=== PATIENT | female | born 1985 | race Caucasian/White ===

== ENCOUNTER 2023-04-28 21:34 | Outpatient (REF) | payer BC, OTHER, SELFPAY ==
[2023-05-01 16:10] LABS: Age Gdln ACOG Testing Note (.); HPV Aptima Negative (Negative); IGP, Aptima HPV, rfx 16/18,45 Note (.)
== END 2023-04-28 21:35 | disposition home or self-care (01) ==
LOC: LAB 21:34
PROVIDERS: Visit Provider Obstetrics & Gynecology
DX: Z01.419 Encounter for gynecological examination (general) (routine) without abnormal findings (principal)
CPT/HCPCS: 87624; G0145

== ENCOUNTER 2024-05-03 21:54 | Outpatient (REF) | payer BC, OTHER, SELFPAY ==
--- OUTSIDE RECORDS SUMMARY | 2024-05-03 21:58 | XMS_ITS | CCD ---
Author Organization [facility] Care Team Providers Care 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 Name Role Phone BENITEZ, DR GÓMEZ Admitting Unavailable BENITEZ, DR GÓMEZ Attending Unavailable BENITEZ, DR GÓMEZ Consulting Unavailable BENITEZ, DR GÓMEZ Admitting Unavailable BENITEZ, DR GÓMEZ Attending Unavailable NADERER, DR DAMON Granado Primary Care Unavailable BENITEZ, DR GÓMEZ Consulting Unavailable BENITEZ, DR GÓMEZ Consulting Unavailable BENITEZ, DR GÓMEZ Admitting Unavailable BENITEZ, DR GÓMEZ Attending Unavailable NADEREDavid, DR DAMON Granado Primary Care Unavailable NAVYA BARRON Consulting Unavailable BENITEZ, DR GÓMEZ Admitting Unavailable BENITEZ, DR GÓMEZ Attending Unavailable BENITEZ, DR GÓMEZ Admitting Unavailable BENITEZ, DR GMÓEZ Attending Unavailable DECATUR, DR CARTER Garg Consulting Unavailable BENITEZ, DR GÓMEZ Consulting Unavailable Anna Willson Unavailable Damon Merritt MD Primary Care Provider RICO DAMON Attending Unavailable OTTO RANDHAWA Attending Unavailable OTTO RANDHAWA Attending Unavailable OTTO RANDHAWA Attending Unavailable ELENA REDD Attending Unavailable ELENA REDD Attending Unavailable KASSY VÁSQUEZ Attending Unavailab DAMON Hernández Attending Unavailable ELENA REDD Attending Unavailable Allergies Allergy Classification Reported Allergen(s) Allergy Type Date of Onset Reaction(s) Facility (1 source) Azithromycin Drug Allergy 04-11-2014 [facility] (1 source) Latex Drug allergy (disorder) 07-21-2015 [facility] Medications Current Medications Medication Drug Class(es) Dates Sig (Normalized) Sig (Original) acetaminophen 325 mg / oxyCODONE hydrochloride 5 mg oral tablet (13 sources) Opioid Agonist Start: 05-25-2023 oxyCODONE-acetam inophen (Percocet) 5-325 MG tablet Take 1 tablet by mouth in the morning and 1 tablet at noon and 1 tablet in the evening and 1 tablet before bedtime. 05/25/2023 Active 24 hr dexmethylphenidate hydrochloride 30 mg extended release oral capsule (11 sources) Central Nervous System Stimulant Start: 01-27-2024 End: 03-01-2024 take 1 capsule by mouth once daily Start: 11-06-2023 End: 01-27-2024 take 1 capsule by mouth once daily dexmethylphenidate XR (Focalin XR) 20 MG 24 hr capsule Indications: ADD (attention deficit disorder) without hyperactivity Take 1 capsule (20 mg) by mouth Daily Do not crush, chew, or split. 30 capsule 12/04/2023 01/27/2024 Discontinued lisdexamfetamine dimesylate 50 mg oral capsule (9 sources) Central Nervous System Stimulant Start: 04-19-2024 End: 05-19-2024 take 1 capsule by mouth in the morning lisdexamfetamine (Vyvanse) 50 MG capsule Indications: ADD (attention deficit disorder) without hyperactivity Take 1 capsule (50 mg) by mouth in the morning. 30 capsule 04/19/2024 05/19/2024 Active Start: 04-05-2024 End: 05-05-2024 take 1 capsule by mouth in the morning lisdexamfetamine (Vyvanse) 40 MG capsule Indications: ADD (attention deficit disorder) without hyperactivity Take 1 capsule (40 mg) by mouth in the morning. 30 capsule 04/05/2024 04/15/2024 Discontinued (Reorder) Start: 03-01-2024 End: 04-05-2024 take 1 capsule by mouth in the morning lisdexamfetamine (Vyvanse) 20 MG capsule Indications: ADD (attention deficit disorder) without hyperactivity Take 1 capsule (20 mg) by mouth in the morning. 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 Take 1 tablet (100 mg) by mouth Daily 30 tablet 04/19/2024 04/19/2025 Active tiZANidine 4 mg oral tablet (13 sources) Central alpha-2 Adrenergic Agonist tiZANidine (Zanaflex) 4 MG tablet Take 4 mg by mouth Active Completed/Discontinued Medications Medication Drug Class(es) Dates Sig (Normalized) Sig (Original) predniSONE 50 mg oral tablet (2 sources) Start: 02-09-2024 End: 02-15-2024 take 1 tablet by mouth once daily predniSONE (Deltasone) 50 MG tablet Indications: Chronic elbow pain, right Take 1 tablet (50 mg) by mouth Daily for 6 days 6 tablet 02/09/2024 02/15/2024 Problems Active Problems Problem Classification Problem Date Documented Date Episodic/Chronic Anxiety disorders (20 sources) Anxiety; Translations: [Anxiety disorder, unspecified] Onset: 06-05-2023 06-05-2023 Chronic Contraceptive and procreative management (1 source) Tubal ligation status; Translations: [TUBAL LIGATION STATUS] Onset: 03-07-2021 Episodic Developmental disorders (13 sources) Sensory disorder; 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] Onset: 03-30-2023 03-30-2023 Chronic Disorders usually diagnosed in infancy, childhood, or adolescence (20 sources) Attention deficit hyperactivity disorder, predominantly inattentive type; Translations: [Other specified behavioral and emotional disorders with onset usually occurring in childhood and adolescence] Onset: 11-06-2023 11-06-2023 Chronic Immunizations and screening for infectious disease (1 source) Encounter for screening for human papillomavirus (HPV); Translations: [ENC SCREENING HUMAN PAPILLOMAVIRUS] Onset: 01-02-2021 Episodic Menstrual disorders (6 sources) Dysmenorrhea, unspecified; Translations: [Excessive and frequent menstruation with regular cycle] Onset: 03-02-2021 Chronic Other ear and sense organ disorders (13 sources) Hearing change; Translations: [Unspecified hearing loss, bilateral] Onset: 06-05-2023 06-05-2023 Chronic Other hereditary and degenerative nervous system conditions (5 sources) Restless legs; Translations: [Restless legs syndrome] Onset: 04-19-2024 04-15-2024 Chronic Other nervous system disorders (15 sources) Attention and concentration deficit; Translations: [Attention or concentration deficit] Onset: 03-21-2023 03-21-2023 Chronic Other non-traumatic joint disorders (11 sources) Chronic pain of right upper limb; Translations: [Pain in right elbow] Onset: 02-09-2024 02-09-2024 Episodic Other nutritional; endocrine; and metabolic disorders (1 source) Morbid (severe) obesity due to excess calories; Translations: [MORBID SEVERE OBES D/T EXCESS BEATRICE] Onset: 03-07-2021 Chronic Other nutritional; endocrine; and metabolic disorders (1 source) Body mass index (BMI) 39.0-39.9, adult; Translations: [BODY MASS INDEX BMI 39.0-39.9 ADULT] Onset: 03-07-2021 Chronic Other nutritional; endocrine; and metabolic disorders (11 sources) Severe obesity; Translations: [Class 3 severe obesity due to excess calories without serious comorbidity with body mass index (BMI) of 40.0 to 44.9 in adult] Onset: 02-09-2024 02-09-2024 Chronic Other screening for suspected conditions (not mental disorders or infectious disease) (4 sources) Encounter for screening for malignant neoplasm of cervix; Translations: [ENC SCREENING MALIG NEOPLASM CERV] Onset: 12-20-2020 Episodic Residual codes; unclassified (1 source) Acquired absence of other specified parts of digestive tract; Translations: [ACQ ABSENCE OTH PART DIGESTV TRACT] Onset: 03-07-2021 Episodic Substance-related disorders (1 source) Nicotine dependence, cigarettes, uncomplicated; Translations: [NICOTINE DEPEND CIGARETTES UNCOMP] Onset: 03-07-2021 Chronic Unclassified (1 source) CONTACT W/AND (SUSP) EXPOS COVID-19; Translations: [CONTACT W/AND (SUSP) EXPOS COVID-19] Onset: 03-05-2021 Unclassified (2 sources) Post-COVID chronic concentration deficit 01-27-2024 Unclassified (2 sources) Chronic pain of right upper limb 02-09-2024 Past or Other Problems Problem Classification Problem Date Documented Da te Episodic/Chronic Blindness and vision defects (13 sources) Eye / vision finding; Translations: [Unspecified visual disturbance] Onset: 06-05-2023 06-05-2023 Episodic Intracranial injury (17 sources) Traumatic brain injury; Translations: [TBI (traumatic brain injury)] Onset: 06-05-2023 06-05-2023 Episodic Other injuries and conditions due to external causes (1 source) Unspecified injury of right wrist, hand and finger(s), initial encounter Onset: 04-10-2021 Resolved: 04-10-2021 Episodic Spondylosis; intervertebral disc disorders; other back problems (13 sources) Thoracic radiculitis; Translations: [Radiculopathy, thoracic region] Onset: 10-02-2012 09-18-2023 Episodic Sprains and strains (1 source) Sprain of unspecified part of right wrist and hand, initial encounter Onset: 04-10-2021 Resolved: 04-10-2021 Episodic Results Test Name Value Interpretation Reference Range Facility XR hand RT min 3V*on 022 XR hand RT min 3V* [facility] [place] [address] [place] [address] XRay Report Signed Patient: Gretel Card MR#: [id number] : 1985 Acct:[id number] Age/Sex: 35 / F ADM Date: 04/10/21 Loc: [facility] Room: Type: [facility] Attending Dr: Anna Willson PA-C Ordering Provider: Anna Willson Date of Service: 04/10/21 XR/XR hand RT min 3V*: Injury of right hand, initial encounter Copies to: Anna Willson XR hand RT min 3V* 04/10/2021 4:33 PM SIGNS AND SYMPTOMS: Fall onto right hand with pain and bruising along the palmar aspect canal and along the first and second metacarpals PROTOCOL: Frontal, lateral, and oblique radiographs of the right hand COMPARISON: None FINDINGS: The bones are in anatomic alignment. There is no evidence of fracture or dislocation. No significant soft tissue swelling. The joint spaces are preserved. XR/XR hand RT min 3V* IMPRESSION: No acute bony injury. Impression dictated by: Celio Gomez M.D.04/10/2021 5:00 PM Dictation Location: [place] [address] Transcribed By: [facility] 04/10/21 170 Dictated By: Celio Gomez II, MD 04/10/21 165 Signed By: 04/10/21 1700 Normal [facility] XR hand RT min 3V* [facility] [employer] Other XR hand RT min 3V* [facility] [employer] Other XR hand RT min 3V* [address] [place] [address] [employer] Other XR hand RT min 3V* [place] [address] [employer] Other XR hand RT min 3V* XRay Report [employer] Other XR hand RT min 3V* Signed [employer] Other XR hand RT min 3V* Patient: Gretel Card MR#: [id number] [employer] Other XR hand RT min 3V* 8929 [employer] Other XR hand RT min 3V* : 1985 Acct:[id number] [employer] Other XR hand RT min 3V* Age/Sex: 35 / F ADM Date: 04/10/21 [employer] Other XR hand RT min 3V* Loc: [facility] Room: Type: [facility] [employer] Other XR hand RT min 3V* Attending Dr: Anna Willson PA-C [employer] Other XR hand RT min 3V* Ordering Provider: Anna Willson [employer] Other XR hand RT min 3V* Date of Service: 04/10/21 [employer] Other XR hand RT min 3V* XR/XR hand RT min 3V*: Injury of right hand, initial encounter [employer] Other XR hand RT min 3V* Copies to: Anna Willson [employer] Other XR hand RT min 3V* XR hand RT min 3V* 04/10/2021 4:33 PM [employer] Other XR hand RT min 3V* SIGNS AND SYMPTOMS: Fall onto right hand with pain and bruising along the palmar aspect canal and [employer] Other XR hand RT min 3V* along the first and second metacarpals [employer] Other XR hand RT min 3V* PROTOCOL: Frontal, lateral, and oblique radiographs of the right hand [employer] Other XR hand RT min 3V* COMPARISON: None [employer] Other XR hand RT min 3V* FINDINGS: [employer] Other XR hand RT min 3V* The bones are in anatomic alignment. There is no evidence of fracture or dislocation. No [employer] Other XR hand RT min 3V* significant soft tissue swelling. The joint spaces are preserved. [employer] Other XR hand RT min 3V* XR/XR hand RT min 3V* [employer] Other XR hand RT min 3V* IMPRESSION: [employer] Other XR hand RT min 3V* No acute bony injury. [employer] Other XR hand RT min 3V* Impression dictated by: Celio Gomez M.D.04/10/2021 5:00 PM [employer] Other XR hand RT min 3V* Dictation Location: [place] [address] [employer] Other XR hand RT min 3V* Transcribed By: PWS 04/10/21 1700 [facility] [employer] Other XR hand RT min 3V* Dictated By: Celio Gomez II, MD 04/10/21 1658 [facility] [employer] Other XR hand RT min 3V* Signed By: [employer] Other XR hand RT min 3V* 04/10/21 1700 [facility] [employer] Other CBC AUTO DIFFon 03-02-2021 BASO # 0.1 103/ul Normal 0.0-0.1 [facility] Comment on above: Performed By: #### C BC #### [facility] [address] [place] [address] Dr. Marina Zavala Basophils/100 WBC (Bld) 0.8 % Normal 0.2-2.0 [facility] Comment on above: Performed By: #### C BC #### [facility] [address] [place] [address] Dr. Marina Zavala EO # 0.4 103/ul Normal 0.0-0.7 [facility] Comment on above: Performed By: #### C BC #### [facility] [address] [place] [address] Dr. Marina Zavala Eosinophils/100 WBC (Bld) 4.5 % Normal 0.9-7.0 [facility] Comment on above: Performed By: #### C BC #### [facility] [address] [place] [address] Dr. Marina Zavala Erythrocyte distribution width (RBC) [Ratio] 12.7 % Normal 11.0-15.0 [facility] Comment on above: Performed By: #### C BC #### [facility] [address] [place] [address] Dr. Marina Zavala Hematocrit (Bld) [Volume fraction] 41.6 % Normal 36.0-48.0 [facility] Comment on above: Performed By: #### C BC #### [facility] [address] [place] [address] Dr. Marina Zavala Hemoglobin (Bld) [Mass/Vol] 13.4 g/dL Normal 12.0-16.0 [facility] Comment on above: Performed By: #### C BC #### [facility] [address] [place] [address] Dr. Marina Zavala IG # 0.02 10e3/ul Normal 0.00-0.03 [facility] Comment on above: Performed By: #### C BC #### [facility] [address] [place] [address] Dr. Marina Zavala IG % 0.3 % Normal 0.0-0.5 [facility] Comment on above: Performed By: #### C BC #### [facility] [address] [place] [address] Dr. Marina Zavala LYMPH # 2.2 103/ul Normal 1.2-3.8 [facility] Comment on above: Performed By: #### C BC #### [facility] [address] [place] [address] Dr. Marina Zavala Lymphocytes/100 WBC (Bld) 27.9 % Normal 20.5-60.0 [facility] Comment on above: Performed By: #### C BC #### [facility] [address] [place] [address] Dr. Marina Zavala MANUAL DIFF REQ NO Normal [facility] Comment on above: Performed By: #### C BC #### [facility] [address] [place] [address] Dr. Marina Zavala MCH (RBC) [Entitic mass] 28.5 pg Normal 26.7-34.0 [facility] Comment on above: Performed By: #### C BC #### [facility] [address] [place] [address] Dr. Marina Zavala MCHC (RBC) [Mass/Vol] 32.2 g/dL Normal 29.9-35.2 [facility] Comment on above: Performed By: #### C BC #### [facility] [address] [place] [address] Dr. Marina Zavala MCV (RBC) [Entitic vol] 88.5 fL Normal 81.0-99.0 [facility] Comment on above: Performed By: #### C BC #### [facility] [address] [place] [address] Dr. Marina Zavala MONO # 0.8 103/ul Normal 0.3-0.8 [facility] Comment on above: Performed By: #### C BC #### [facility] [address] [place] [address] Dr. Marina Zavala Monocytes/100 WBC (Bld) 9.7 % Normal 1.7-12.0 [facility] Comment on above: Performed By: #### C BC #### [facility] [address] [place] [address] Dr. Marina Zavala NEUT # 4.5 103/ul Normal 1.4-6.5 [facility] Comment on above: Performed By: #### C BC #### [facility] [address] [place] [address] Dr. Marina Zavala Neutrophils/100 WBC (Bld) 56.8 % Normal 43.0-75.0 [facility] Comment on above: Performed By: #### C BC #### [facility] [address] [place] [address] Dr. Marina Zavala Platelet mean volume (Bld) [Entitic vol] 10.0 fL Normal 9.5-13.5 [facility] Comment on above: Performed By: #### C BC #### [facility] [address] [place] [address] Dr. Marina Zavala PLT 267 103/ul Normal 150-450 [facility] Comment on above: Performed By: #### C BC #### [facility] [address] [place] [address] Dr. Marina Zavala RBC 4.70 106/ul Normal 4.20-5.40 [facility] Comment on above: Performed By: #### C BC #### [facility] [address] [place] [address] Dr. Marina Zavala WBC 7.9 103/ul Normal 4.0-11.0 [facility] Comment on above: Performed By: #### C BC #### [facility] [address] [place] [address] [address] Marina Zavala PREG QUANT HCGon 03-02-2021 HCG QUANT <1 Normal [facility] Comment on above: Performed By: #### P REGQNT #### [facility] [address] [place] [address] [address] Marina Zavala HCG RANGE SEE BELOW Normal [facility] Comment on above: Result Comment: 5-50 0-1 WEEK 40-300 1-2 WEEKS 100-1,000 2-3 WEEKS 500-6,000 3-4 WEEKS 5,000-200,000 1-2 MONTHS 10,000-100,000 2-3 MONTHS 3,000-50,000 2ND TRIMESTER 1,000-50,000 3RD TRIMESTER Performed By: #### P REGQNT #### [facility] [address] [address] [address] Marina Zavala Covid-19 PCR (CVDTBH)on SARS-CoV-2 (COVID-19) RNA RONI+probe Ql (Unsp spec) Not detected Normal NOT DETECTED [facility] Comment on above: Result Comment: This test is not yet approved or cleared by the [place] FDA. When there are no FDA-approved or cleared tests available, and other criteria are met, FDA can make tests available under an emergency access mechanism called an Emergency Use Authorization (EUA). The EUA for this test is supported by the [place] [employer] of Health and Human Service's (HHS's) declaration that circumstances exist to justify the emergency use of in vitro diagnostics for the detection and/or diagnosis of the virus that causes COVID-19. This EUA will remain in effect (meaning this test can be used) for the duration of the COVID-19 declaration justifying emergency of IVDs, unless it is terminated or revoked by FDA (after which the test may no longer be used). When diagnostic testing is negative, the possibility of a false negative should be considered in the context of a patient's recent exposures and the presence of clinical signs and symptoms consistent with SARS-CoV-2. Performed By: #### C VDTBH #### [facility] [address] [place] [address] Dr. Marina Zavala CBC AUTO DIFFon 01-15-2021 BASO # 0.0 103/ul Normal 0.0-0.1 [facility] Comment on above: Performed By: #### C BC #### [facility] [address] [place] [address] Dr. Marina Zavala Basophils/100 WBC (Bld) 0.5 % Normal 0.2-2.0 [facility] Comment on above: Performed By: #### C BC #### [facility] [address] [place] [address] Dr. Marina Zavala EO # 0.1 103/ul Normal 0.0-0.7 [facility] Comment on above: Performed By: #### C BC #### [facility] [address] [place] [address] Dr. Marina Zavala Eosinophils/100 WBC (Bld) 1.5 % Normal 0.9-7.0 [facility] Comment on above: Performed By: #### C BC #### [facility] [address] [place] [address] Dr. Marina Zavala Erythrocyte distribution width (RBC) [Ratio] 12.7 % Normal 11.0-15.0 [facility] Comment on above: Performed By: #### C BC #### [facility] [address] [place] [address] Dr. Marina Zavala Hematocrit (Bld) [Volume fraction] 40.5 % Normal 36.0-48.0 [facility] Comment on above: Performed By: #### C BC #### [facility] [address] [place] [address] Dr. Marina Zavala Hemoglobin (Bld) [Mass/Vol] 13.2 g/dL Normal 12.0-16.0 [facility] Comment on above: Performed By: #### C BC #### [facility] [address] [place] [address] Dr. Marina Zavala IG # 0.02 10e3/ul Normal 0.00-0.03 [facility] Comment on above: Performed By: #### C BC #### [facility] [address] [place] [address] Dr. Marina Zavala IG % 0.2 % Normal 0.0-0.5 [facility] Comment on above: Performed By: #### C BC #### [facility] [address] [place] [address] Dr. Marina Zavala LYMPH # 2.2 103/ul Normal 1.2-3.8 [facility] Comment on above: Performed By: #### C BC #### [facility] [address] [place] [address] Dr. Marina Zavala Lymphocytes/100 WBC (Bld) 25.7 % Normal 20.5-60.0 [facility] Comment on above: Performed By: #### C BC #### [facility] [address] [place] [address] Dr. Marina Zavala MANUAL DIFF REQ NO Normal [facility] Comment on above: Performed By: #### C BC #### [facility] [address] [place] [address] Dr. Marina Zavala MCH (RBC) [Entitic mass] 29.0 pg Normal 26.7-34.0 [facility] Comment on above: Performed By: #### C BC #### [facility] [address] [place] [address] Dr. Marina Zavala MCHC (RBC) [Mass/Vol] 32.6 g/dL Normal 29.9-35.2 [facility] Comment on above: Performed By: #### C BC #### [facility] [address] [place] [address] Dr. Marina Zavala MCV (RBC) [Entitic vol] 89.0 fL Normal 81.0-99.0 [facility] Comment on above: Performed By: #### C BC #### [facility] [address] [place] [address] Dr. Marina Zavala MONO # 0.6 103/ul Normal 0.3-0.8 [facility] Comment on above: Performed By: #### C BC #### [facility] [address] [place] [address] Dr. Marina Zavala Monocytes/100 WBC (Bld) 7.5 % Normal 1.7-12.0 [facility] Comment on above: Performed By: #### C BC #### [facility] [address] [place] [address] Dr. Marina Zavala NEUT # 5.5 103/ul Normal 1.4-6.5 [facility] Comment on above: Performed By: #### C BC #### [facility] [address] [place] [address] Dr. Marina Zavala Neutrophils/100 WBC (Bld) 64.6 % Normal 43.0-75.0 [facility] Comment on above: Performed By: #### C BC #### [facility] [address] [place] [address] Dr. Marina Zavala Platelet mean volume (Bld) [Entitic vol] 10.4 fL Normal 9.5-13.5 [facility] Comment on above: Performed By: #### C BC #### [facility] [address] [place] [address] Dr. Marina Zavala PLT 267 103/ul Normal 150-450 [facility] Comment on above: Performed By: #### C BC #### [facility] [address] [place] [address] Dr. Marina Zavala RBC 4.55 106/ul Normal 4.20-5.40 [facility] Comment on above: Performed By: #### C BC #### [facility] [facility] [address] [place] [address] Dr. Marina Zavala WBC 8.5 103/ul Normal 4.0-11.0 [facility] Comment on above: Performed By: #### C BC #### [facility] [address] [place] [address] Dr. Marina Zavala PREG QUANT HCGon 01-15-2021 HCG QUANT 1 mIU/mL Normal [facility] Comment on above: Performed By: #### P REGQNT, TSH #### [facility] [address] [place] [address] Dr. Marina Zavala HCG RANGE SEE BELOW Normal [facility] Comment on above: Result Comment: 5-50 0-1 WEEK 40-300 1-2 WEEKS 100-1,000 2-3 WEEKS 500-6,000 3-4 WEEKS 5,000-200,000 1-2 MONTHS 10,000-100,000 2-3 MONTHS 3,000-50,000 2ND TRIMESTER 1,000-50,000 3RD TRIMESTER Performed By: #### P REGQNT, TSH #### [facility] [address] [address] [address] Marina Zavala PROTIMEon 01-15-2021 INR Coag (PPP) [Relative time] 0.98 {INR} Normal [facility] Comment on above: Performed By: #### P T, PTT #### [facility] [address] [address] [address] Marina Zavala INR GUIDELINES SEE BELOW Normal [facility] Comment on above: Result Comment: MARIAN RED INR: 2.0 - 3.0 CONDITIONS NOT LISTED BELOW 2.5 - 3.5 FOR PROSTHETIC HEART VALVE REPLACEMENT 2.5 - 3.5 RECURRENT THROMBOSIS Performed By: #### P T, PTT #### [facility] [address] [address] [address] Marina Zavala PT Coag (PPP) [Time] 10.6 s Normal 9.0-11.6 [facility] Comment on above: Performed By: #### P T, PTT #### [facility] [address] [address] [address] Marina Zavala PTTon 01-15-2021 aPTT Coag (Bld) [Time] 29.1 s Normal 22.3-36.2 [facility] Comment on above: Performed By: #### P T, PTT ####[facility] [id number] [address]. Marina Zavala TSHon 01-15-2021 TSH 2.094 uIU/mL Normal 0.470-4.680 [facility] Comment on above: Performed By: #### P REGQNT, TSH #### [facility] [address] [address] [address] Mraina Zavala TSH RANGE SEE BELOW [facility] Comment on above: Result Comment: <0.3 4 UIU/ml HYPERTHYROID 0.34-5.60 UIU/ml EUTHYROID >5.60 UIU/ml HYPOTHYROID Performed By: #### P REGQNT, TSH #### [facility] [address] [address] [address] Marina Zavala US PELVIS AND TRANSVAGon US PELVIS AND TRANSVAG EXAMINATION: US PELVIS AND TRANSVAG HISTORY: Excessive and frequent menstruation COMPARISON: No relevant comparison available. FINDINGS: Transabdominal and transvaginal images The uterus is normal in size, contour and echotexture measuring 10.0 x 5.3 x 7.3 cm. Anteverted. Endometrium measures 11.1 mm, normal. The right ovary is normal in appearance measuring 2.7 x 2.4 x 2.5 cm. Normal resistive index of 0.44. Left ovary is normal in appearance measuring 2.4 x 1.6 x 1.8 cm. Normal resistive index of 0.49. No free fluid IMPRESSION: Normal exam Electronically authenticated by: CARTER LUCIANO Date: 2021-01-15 17:34 Normal [facility] PAP ACOG PANEL 2: 30 to 65on 12-25-2020 . . Normal [facility] Comment on above: Result Comment: Perf ormed at: WB Performed By: #### [id number] #### [facility] [address] [place] [address] Dr. Marina Zavala Age Gdln ACOG Testing 30-65 Normal [facility] Comment on above: Performed By: #### [id number] #### [facility] [address] [address] [address] Marina Zavala DIAGNOSIS: Comment Normal [facility] Comment on above: Result Comment: NEGA TIVE FOR INTRAEPITHELIAL LESION OR MALIGNANCY. REACTIVE CELLULAR CHANGES AND/OR REPAIR ARE PRESENT. Performed at: WB Performed By: #### [id number] #### [facility] [address] [address] [address] Marina Zavala Electronically signed by: Comment Normal [facility] Comment on above: Result Comment: Debr a M Brown, MD, Pathologist Performed at: WB Performed By: #### [id number] #### [facility] [address] [place] [address] Dr. Marina Zavala HPV Aptima Negative Normal Negative [facility] Comment on above: Result Comment: This nucleic acid amplification test detects fourteen high-risk HPV types (16,18,31,33,35,39,45,51,52,56,58,59,66,68) without differentiation. Performed at: =G Performed By: #### [id number] #### [facility] [address] [place] [address] Dr. Marina Zavala Methodology: Comment Normal [facility] Comment on above: Result Comment: This liquid based ThinPrep(R) pap test was screened with the use of an image guided system. Performed at: WB Performed By: #### [id number] #### [facility] [address] [place] [address] Dr. Marina Zavala Note: Comment Normal [facility] Comment on above: Result Comment: The Pap smear is a screening test designed to aid in the detection of premalignant and malignant conditions of the uterine cervix. It is not a diagnostic procedure and should not be used as the sole means of detecting cervical cancer. Both false-positive and false-negative reports do occur. . Performed at: WB Performed By: #### [id number] #### [facility] [address] [place] [address] Dr. Marina Zavala Performed by: Comment Normal [facility] Comment on above: Result Comment: Dimple Casas, Snag Grinder (ASCP) Performed at: WB Performed By: #### [id number] #### [facility] [address] [place] [address] Dr. Marina Zavala Specimen adequacy: Comment Normal [facility] Comment on above: Result Comment: Sati sfactory for evaluation. Endocervical and/or squamous metaplastic cells (endocervical component) are present. Performed at: WB Performed By: #### [id number] #### [facility] [address] [place] [address] Dr. Marina Zavala Complete Blood Count no refl exon 11-17-2020 Basophils (Bld) [#/Vol] 0.0 10*3/uL Normal 0.0-0.2 [facility] Comment on above: Result Comment: PERF ORMED BY: [place] [address] PATHOLOGIST EMPLOYEE COMMUNICATIONS MANAGER TELLO JOHNSON M.D. Performed By: #### C HC CBC #### [address] Basophils/100 WBC (Bld) 0.5 % Normal . [facility] Comment on above: Performed By: #### C HC CBC #### [address] Eosinophils (Bld) [#/Vol] 0.1 10*3/uL Normal 0.0-0.45 [facility] Comment on above: Performed By: #### C HC CBC #### [address] Eosinophils/100 WBC (Bld) 0.6 % Normal . [facility] Comment on above: Performed By: #### C HC CBC #### [address] Erythrocyte distribution width (RBC) [Ratio] 13.3 % Normal 11.9-15.3 [facility] Comment on above: Performed By: #### C HC CBC #### [address] Hematocrit (Bld) [Volume fraction] 40.6 % Normal 34.0-46.4 [facility] Comment on above: Performed By: #### C HC CBC #### [address] Hemoglobin (Bld) [Mass/Vol] 13.9 g/dL Normal 11.8-15.4 [facility] Comment on above: Performed By: #### C HC CBC #### [address] Lymphocytes (Bld) [#/Vol] 1.6 10*3/uL Normal 1.00-4.8 [facility] Comment on above: Performed By: #### C HC CBC #### [facility] [address] Lymphocytes/100 WBC (Bld) 16.7 % Normal . [facility] Comment on above: Performed By: #### C HC CBC #### [facility] [address] MCH (RBC) [Entitic mass] 30.1 pg Normal 24.7-34.3 [facility] Comment on above: Performed By: #### C HC CBC #### [address] MCV (RBC) [Entitic vol] 88.0 fL Normal 80-100 [facility] Comment on above: Performed By: #### C HC CBC #### [address] Mean Corpuscular HGB Conc 34.2 g/dL Normal 32.0-35.0 [facility] Comment on above: Performed By: #### C HC CBC #### [address] Monocytes (Bld) [#/Vol] 0.6 10*3/uL Normal 0.0-0.8 [facility] Comment on above: Performed By: #### C HC CBC #### [address] Monocytes/100 WBC (Bld) 5.9 % Normal . [facility] Comment on above: Performed By: #### C HC CBC #### [address] Neutrophils (Bld) [#/Vol] 7.5 10*3/uL Normal 1.8-7.7 [facility] Comment on above: Performed By: #### C HC CBC #### [address] Neutrophils/100 WBC (Bld) 76.3 % Normal . [facility] Comment on above: Performed By: #### C HC CBC #### [facility] [address] [id number] [place] Nucleated RBC/100 WBC (Bld) [Ratio] 0.1 % Normal 0-0.5 [facility] Comment on above: Performed By: #### C HC CBC #### [facility] [address] [id number] [facility] Platelet mean volume (Bld) [Entitic vol] 9.0 fL Normal 6.3-10.7 [facility] Comment on above: Performed By: #### C HC CBC #### [facility] [address] [id number] [place] Platelets (Bld) [#/Vol] 275 10*3/uL Normal 150-450 [facility] Comment on above: Performed By: #### C HC CBC #### [facility] [address] [place] [address] [place] RBC (Bld) [#/Vol] 4.61 10*6/uL Normal 3.60-5.00 [facility] Comment on above: Performed By: #### C HC CBC #### [facility] [address] [id number] [place] WBC (Bld) [#/Vol] 9.9 10*3/uL Normal 4.5-11.0 [facility] Comment on above: Performed By: #### C HC CBC #### [facility] [address] Vital Signs Date Time Vital Sign Value Performing Clinician Facility 02-09-2024 13:23-050 Body height 161.3 cm Damon Merritt MD Work Phone: [facility] 02-09-2024 13:23-0500 Body mass index (BMI) [Ratio] 40.8 kg/m2 Damon Merritt MD Work Phone: [facility] 02-09-2024 13:23-0500 Body temperature 97.5 [degF] Damon Merritt MD Work Phone: [facility] 02-09-2024 13:23-0500 Body weight 106.14 kg Damon Merritt MD Work Phone: [facility] 02-09-2024 13:23-0500 Diastolic blood pressure 78 mm[Hg] Damon Merritt MD Work Phone: [facility] 02-09-2024 13:23-0500 Heart rate 28 /min Damon Merritt MD Work Phone: [facility] 02-09-2024 13:23-0500 Respiratory rate 20 /min Damon Merritt MD Work Phone: [facility] 02-09-2024 13:23-0500 SaO2% (BldA) [Mass fraction] 94 % Damon Merritt MD Work Phone: [facility] 02-09-2024 13:23-0500 Systolic blood pressure 140 mm[Hg] Damon Merritt MD Work Phone: [facility] 01-27-2024 16:14-0400 Body height 160 cm Kassy Vásquez OIL WELL CABLE TOOL OPERATOR Work Phone: [facility] 01-27-2024 16:14-0400 Body mass index (BMI) [Ratio] 38.97 kg/m2 Kassy Vásquez OIL WELL CABLE TOOL OPERATOR Work Phone: [facility] 01-27-2024 16:14-0400 Body weight 99.79 kg Kassy Vásquez OIL WELL CABLE TOOL OPERATOR Work Phone: [facility] 04-10-2021 17:05-0500 Body height 161.29 cm Anna Willson Other [employer] Other 04-10-2021 17:05-0500 Body mass index (BMI) [Ratio] 40.97 kg/m2 Anna Willson Other [employer] Other 04-10-2021 17:05-0500 Body temperature 98.2 [degF] Anna Willson Other [employer] Other 04-10-2021 17:05-0500 Body weight 106.6 kg Anna Willson Other [employer] Other 04-10-2021 17:05-0500 Diastolic blood pressure 86 mm[Hg] Arelisshanda Willson Other [employer] Other 04-10-2021 17:05-0500 Respiratory rate 16 /min Arelisshanda Willson Other [employer] Other 04-10-2021 17:05-0500 SaO2% (BldA) [Mass fraction] 100 % Arelisshanda Willson Other [employer] Other 04-10-2021 17:05-0500 Systolic blood pressure 132 mm[Hg] Arelisshanda Willson Other [employer] Other Encounters Encounter Date Encounter Type Care Provider Facility Start: 05-03-2024 End: 05-03-2024 Bamboo flowsheet Rico Benitez DO Work Phone: [facility] Start: 05-03-2024 End: 05-03-2024 Bamboo flowsheet Rico Benitez DO Work Phone: [facility] Start: 04-15-2024 End: 04-15-2024 Bamboo flowsheet Elena Redd MD Work Phone: [facility] Start: 04-15-2024 End: 04-15-2024 Bamboo flowsheet Elena Redd MD Work Phone: [facility] Start: 04-15-2024 End: 04-15-2024 ambulatory ELENA REDD Not Available Start: 04-15-2024 End: 04-15-2024 Office outpatient visit 25 minutes Elena Redd MD Work Phone: [facility] Comment on above: ADD (attention defic it disorder) without hyperactivity (Primary Dx); RLS (restless legs syndrome) Start: 04-05-2024 End: 04-05-2024 Orders Only Kassy Vásquez OIL WELL CABLE TOOL OPERATOR Work Phone: [facility] 210 Comment on above: ADD (attention defic it disorder) without hyperactivity (Primary Dx) Start: 03-01-2024 End: 03-01-2024 Orders Only Kassy Vásquez OIL WELL CABLE TOOL OPERATOR Work Phone: [facility] 210 Comment on above: ADD (attention defic it disorder) without hyperactivity (Primary Dx) Start: 02-09-2024 End: 02-09-2024 Bamboo flowsheet Damon Merritt MD Work Phone: [facility] Start: 02-09-2024 End: 02-09-2024 Bamboo flowsheet Damon Merritt MD Work Phone: [facility] Start: 02-09-2024 End: 02-09-2024 Office outpatient visit 15 minutes Damon Merritt MD Work Phone: [facility] Comment on above: Chronic elbow pain, right (Primary Dx); Class 3 severe obesity due to excess calories without serious comorbidity with body mass index (BMI) of 40.0 to 44.9 in adult ([facility]) Start: 02-09-2024 End: 02-09-2024 ambulatory DAMON MERRITT Not Available Start: 01-27-2024 End: 01-27-2024 Phys/qhp telephone evaluation 21-30 min Kassy Vásquez OIL WELL CABLE TOOL OPERATOR Work Phone: [facility] 210 Comment on above: ADD (attention defic it disorder) without hyperactivity (Primary Dx); Traumatic brain injury, with unknown loss of consciousness status, subsequent encounter; Post-COVID chronic concentration deficit; Anxiety; PTSD (post-traumatic stress disorder) ([facility]) Start: 01-27-2024 End: 01-27-2024 ambulatory KASSY VÁSQUEZ Not Available Start: 01-14-2024 End: 01-14-2024 Telephone encounter Elena Redd MD Work Phone: [facility] 210 Start: 12-04-2023 End: 12-04-2023 Telephone encounter Kassy Vásquez OIL WELL CABLE TOOL OPERATOR Work Phone: [facility] 210 Start: 11-06-2023 End: 11-06-2023 ambulatory ELENA REDD Not Available Start: 09-18-2023 End: 09-18-2023 ambulatory ELENA REDD Not Available Start: 07-22-2023 End: 07-22-2023 ambulatory OTTO SYDNEE Not Available Start: 06-23-2023 End: 06-23-2023 ambulatory OTTO SYDNEE Not Available Start: 06-02-2023 End: 06-02-2023 ambulatory RICO BENITEZ Not Available Start: 05-26-2023 End: 05-26-2023 ambulatory OTTO SYDNEE Not Available Start: 04-28-2023 End: 04-28-2023 ambulatory RICO BENITEZ Not Available Start: 04-10-2021 End: 04-10-2021 ambulatory Anna Willson Other [employer] Other Start: 04-10-2021 Office outpatient ne w 20 minutes Anna Willson [facility] [place] Start: 03-05-2021 Encounter for preprocedural laboratory examination DR RICO DAMON [facility] Start: 03-02-2021 End: 03-02-[address] RICO DAMON Facility:[facility]1 Start: 02-28-2021 End: 03-01-[address] RICO DAMON Facility:[facility] Start: 02-28-2021 End: 03-01-2021 Encounter for preprocedural laboratory examination DR RICO DAMON Facility:[facility] Start: 02-27-[address] RICO DAMON Facility :[facility] Start: 01-15-2021 End: 01-16-[address] RICO DAMON Facility:[facility] Start: 12-20-2020 End: 12-20-[address] RICO DAMON Facility:[facility] Procedures Date Procedure Procedure Detail Performing Clinician Start: 04-28-2023 Microscopic observat ion [Identifier] in Cervix by Cyto stain Kassy Vásquez OIL WELL CABLE TOOL OPERATOR Work Phone: Plan of Treatment Date Care Activity Detail Author Start: 04-28-2028 Screening for malign ant neoplasm of cervix [facility] Start: 09-27-2024 Influenza vaccination Influenza Vacc ine (#1) [facility] Comment on above: Postponed from 11/29 (Patient Refused) Start: 07-14-2024 End: 07-14-2024 Patient encounter procedure 07/14/2024 3:40 PM EDT Office Visit [facility] [address] [phone] Elena Redd MD [address] [facility] [address] [place] [id number] [facility] Start: 05-03-2024 End: 05-03-2024 Patient encounter procedure [facility] Comment on above: Arrived Start: 04-15-2024 End: 04-15-2024 Patient encounter procedure 04/15/2024 10:20 AM EST Office Visit [facility] [address] [phone] Elena Redd MD [address] [facility] [address] [place] [id number] [facility] Start: 02-09-2024 End: 02-09-2024 Patient encounter procedure 02/09/2024 1:15 PM EST Office Visit [facility] [address] [place] [phone] Damon Merritt MD [address] [place] [address] [facility] Start: 01-27-2024 End: 01-27-2024 Telemedicine consultation with patient 01/27/2024 4:00 PM EDT Telemedicine [facility] [address] [place] [phone] Kassy Vásquez NP [address] [place] [address] [facility] [address] Start: 01-14-2024 End: 01-14-2024 Patient encounter procedure 01/14/2024 1:00 PM EDT Office Visit [facility] [address] [facility] [address] [place] [address] Elena Redd MD [address], [place] [id number] [facility] Start: 11-30-2023 Influenza vaccination Influenza Vacc ine (#1) [facility] Immunizations Immunization Date Immunization Notes Care Provider Fa cility 01-07-2022 influenza virus vacc ine, unspecified formulation Kassy Vásquez OIL WELL CABLE TOOL OPERATOR Work Phone: [facility] Payers Date Payer Category Payer Private Health Insurance [employer]ICA[employer] [id number] 2022 Medicaid [id number] 2021 Blue Cross Blue Shield [id number] 2021 Unknown BCBS BCBS [id number] 2021-Present [phone] [address] [place] [address] [id number] 2021 Unknown [id number] 1984 Unknown [id number] 2.16.840.1.570276.3.579.2. 593 1984 Unknown [id number] 2.16.840.1.142994.3.579.2. 593 1984 Unknown [id number] 2.16.840.1.844046.3.579.2. 593 1984 Unknown [id number] 2.16.840.1.632919.3.579.2. 593 1984 Unknown [id number] 2.16.840.1.676147.3.579.2. 593 1984 Unknown [id number] 2.16.840.1.622539.3.579.2. 1258 1984 Unknown [id number] 2.16.840.1.745311.3.579.2. 1258 1984 Unknown [id number] 2.16.840.1.244737.3.579.2. 1258 1984 Unknown [id number] 2.16.840.1.781772.3.579.2. 1258 1984 Unknown [id number] 2.16.840.1.452258.3.579.2. 1258 1984 Unknown [id number] 2.16.840.1.460701.3.579.2. 125 1984 Unknown [id number] 2.16.840.1.683101.3.579.2. 1259 1984 Unknown [id number] 2.16.840.1.953914.3.579.2. 1258 1984 Unknown [id number] 2.16.840.1.871610.3.579.2. 1259 1984 Unknown [id number] 2.16.840.1.933868.3.579.2. 1259 1959 Unknown [id number] Social History Date Type Detail Facility Start: 11-06-2023 End: 02-08-2024 Sex Assigned At [facility] Start: 03-21-2023 Tobacco smoking status VTIS Ex-smoke r [facility] History of tobacco use Current smoker [facility] History of tobacco use Cigarette Smoker [facility] Start: 03-21-2023 End: 02-08-2024 Cigarettes smoked current (pack per day) - Reported 0.3 [facility] Start: 03-21-2023 Tobacco use and exposure Smoke less tobacco non-user [facility] Start: 11-06-2023 End: 04-15-2024 Alcoholic beverage intake Lifetime non-drinker (finding) [facility] Start: 1985 Sex assigned at Not on file [facility] How often do you nee d to have someone help you when you read instructions, pamphlets, or other written material from your doctor or pharmacy [SILS] Rarely [facility] Do you belong to any clubs or organizations such as jew groups, unions, fraternal or athletic groups, or school groups? Yes [facility] Are you now , , , , never or living with a partner? [facility] How often to you hav e a drink containing alcohol? Never [facility] How hard is it for y ou to pay for the very basics like food, housing, medical care, and heating Somewhat hard [facility] Do you feel stress - tense, restless, nervous, or anxious, or unable to sleep at night because your mind is troubled all the time - these days [OSQ] Only a little [facility] (I/We) worried wheamilcar er (my/our) food would run out before (I/we) got money to buy more. Never true [facility] In the past 12 month s, was there a time when you were not able to pay the mortgage or rent on time? No [facility] Clinical Notes 03-02-2021 to 04-15-2024 Elena Redd MD - 04/15/2024 10:40 AM Niko Vásquez NP - 04/05/2024 8:40 AM Niko Vásquez NP - 03/01/2024 9:41 AM Adalberto Merritt MD - 02/09/2024 2:00 PM EST Note Date & Type Note Facility 04-15-2024 History of Presen t illness Narrative Images from the original note were not included. CHIEF COMPLAINT REASON FOR VISIT: Follow up HPI: Gretel Card is a 38 y.o. female who presents for a follow up. She states she did forget about the creyos testing but will complete. She is now on the vyvanse 40 mg. She states she just started on the 2nd of this month. She states she does not notice much of a difference yet from the 20 mg. She can focus but she is very tired and does not have any energy Denies any other new symptoms that she has noticed. Medications tried: Focalin CURRENT MEDICATIONS: ALLERGIES/DISCONTINUE MEDICATIONS Current Outpatient Medications Medication Instructions lisdexamfetamine (VYVANSE) 40 mg, Oral, Every morning oxyCODONE-acetaminophen (Percocet) 5-325 MG tablet 1 tablet, 4 times daily tiZANidine (ZANAFLEX) 4 mg No Known Allergies There are no discontinued medications. PAST MEDICAL HISTORY: SURGICAL/SOCIAL/FAMILY HISTORY DEPRESSION SCREEN: Past Medical History: Diagnosis Date ADD (attention deficit disorder) March 2021 CTS (carpal tunnel syndrome) Developmental delay March 2021 Memory loss March 2021 Past Surgical History: Procedure Laterality Date CARPAL TUNNEL RELEASE 2017 SECTION, LOW TRANSVERSE x2 CHOLECYSTECTOMY 1998 ENDOMETRIAL ABLATION 02/2022 TUBAL LIGATION Social History Tobacco Use Smoking status: Former Current packs/day: 0.25 Average packs/day: 0.3 packs/day for 10.0 years (2.5 ttl pk-yrs) Types: Cigarettes Smokeless tobacco: Never Substance Use Topics Alcohol use: Never Drug use: Never Family History Problem Relation Name Age of Onset Neuropathy Mother Parent Restless legs syndrome Mother Parent Recurrent abdominal pain Father Depression: Not on file REVIEW OF SYMPTOMS: Review of Systems Constitutional: Positive for fatigue. Negative for chills, diaphoresis and fever. HENT: Negative for ear pain, tinnitus and trouble swallowing. Eyes: Negative for photophobia and visual disturbance. Respiratory: Negative for cough and shortness of breath. Cardiovascular: Negative for palpitations and leg swelling. Gastrointestinal: Negative for abdominal pain and nausea. Genitourinary: Negative for difficulty urinating and urgency. Musculoskeletal: Negative for arthralgias, back pain, myalgias, neck pain and neck stiffness. Neurological: Negative for tremors, weakness, light-headedness and numbness. Psychiatric/Behavioral: Negative for agitation, confusion and suicidal ideas. OBJECTIVE: 02/09/2024 1:23 PM 01/27/2024 4:14 PM 11/06/2023 1:15 PM Vitals BMI 40.8 kg/m2 38.97 kg/m2 41.1 kg/m2 BSA (m2) 2.18 m2 2.11 m2 2.16 m2 Systolic 140 Diastolic 78 Heart Rate 28 SpO2 94 % Temp 97.5 F Resp 20 Height (in) 5' 3.5 5' 3 5' 3 Weight (lb) 234 220 232 Visit Report Report Report EXAM: Neurological Exam Mental Status Awake, alert and oriented to person, place and time. Oriented to person, place and time. Recent and remote memory are intact. Speech is normal. Language is fluent with no aphasia. Attention and concentration are normal. Cranial Nerves CN II: Visual acuity is normal. Visual waggoner full to confrontation. CN III, IV, : Extraocular movements intact bilaterally. Normal lids and orbits bilaterally. Pupils equal round and reactive to light bilaterally. CN V: Facial sensation is normal. CN VII: Full and symmetric facial movement. CN VIII: Hearing is normal. CN XII: Tongue midline without atrophy or fasciculations. Motor Normal muscle bulk throughout. Normal muscle tone. Right Left Wrist flexion 5 5 Wrist extension 5 5 Right Left Deltoid 5 5 Biceps 5 5 Triceps 5 5 Wrist flexor 5 5 Wrist extensor 5 5 Glutei 5 5 Iliopsoas 5 5 Quadriceps 5 5 Gastrocnemius 5 5 Anterior tibialis 5 5 Posterior tibialis 5 5 Sensory Light touch is normal in upper and lower extremities. Pinprick is normal in upper and lower extremities. Vibration is normal in upper and lower extremities. Reflexes Right Left Brachioradialis 2+ 2+ Biceps 2+ 2+ Patellar 2+ 2+ Achilles 2+ 2+ Right Plantar: downgoing Left Plantar: downgoing Right pathological reflexes: Renny's absent. Ankle clonus absent. Left pathological reflexes: Renny's absent. Ankle clonus absent. Coordination Abxurh-dk-ouru, rapid alternating movements and wwkq-wq-hltz normal bilaterally without dysmetria. Gait Normal casual, toe, heel and tandem gait. Romberg is absent. PROCEDURE: NONE ASSESSMENT AND PLAN: Gretel Card is a 38 year old female with debilitating brain fog, memory loss, concentration deficit and fatigue. History of COVID causing her Long Haulers. Her symptoms leave her unable to carry out work related tasks. She was going through [employer] school and was unable to pass certification testing due to memory and fatigue/concentration issues. I will increase Vyvanse to 50 mg daily. Her symptoms have lasted way beyond the 12 month celio. She likely will not be able to maintain any gainful employment. She also has had history of concussion. Brain map -evidence of Delayed N1 latency with reduced neuronal capacity associated with visual processing . Signs of tinnitus, TBI and PTSD. We will continue to follow and treat symptoms. Creyos not completed-Patient made aware that she will still need to complete to evaluate symptoms further. Patient verbalized understanding. Diagnoses and all orders for this visit: ADD (attention deficit disorder) without hyperactivity - thiamine (Vitamin B-1) 100 MG tablet; Take 1 tablet (100 mg) by mouth Daily - lisdexamfetamine (Vyvanse) 50 MG capsule; Take 1 capsule (50 mg) by mouth in the morning. RLS (restless legs syndrome) - rOPINIRole (Requip) 0.25 MG tablet; Take 3 tablets (0.75 mg) by mouth at bedtime Increase Vyvanse to 50 mg daily. Start thiamine 100 mg daily to help with overall brain and nerve health. Start ropinirole 0.25 mg-3 tablets at bed time for restless leg. I counseled the patient on the possible side effects and interactions of medications. Follow up 3 months. documented in this encounter [facility] 04-05-2024 History of Presen t illness Narrative OARRS reviewed. Increased Vyvanse to 40 mg daily documented in this encounter [facility] 03-01-2024 History of Presen t illness Narrative Discontinue focalin. Start Vyvanse. OARRS reviewed. documented in this encounter [facility] 02-09-2024 History of Presen t illness Narrative Associated Problem(s): Class 3 severe obesity due to excess calories without serious comorbidity with body mass index (BMI) of 40.0 to 44.9 in adult ([facility]) Weight loss indicated. Associated Problem(s): Chronic elbow pain, right Prior surgery to move ulnar nerve and developed large scar and pain. Treat with prednisone for inflammation. Refer to ortho for evaluation. Images from the original note were not included. Subjective Patient ID: Gretel Card is a 38 y.o. female who presents for Elbow Injury (Pain in right elbow). C/o right elbow pain for years but getting worse. Patient had cubital tunnel syndrome and surgery to decompress ulnar nerve in 2016. Developed large scar and firmness under skin. C/o pain around elbow off and on for years but getting worse. If use arm a lot will develop swelling and redness on inner elbow around scar. Region very firm and tender to touch. No drainage or open wounds. Pain with squeezing or grabbing things. No numbness or tingling in hands. Worried problems with scar causing pain. Taking motrin PRN and not much relief. On percocet for chronic neck pain. Review of Systems Respiratory: Negative for cough, shortness of breath and wheezing. Cardiovascular: Negative for chest pain and palpitations. Gastrointestinal: Negative for abdominal pain, diarrhea, nausea and vomiting. Genitourinary: Negative for dysuria. Objective Physical Exam Constitutional: General: She is not in acute distress. Appearance: Normal appearance. HENT: Head: Normocephalic. Right Ear: Tympanic membrane normal. Left Ear: Tympanic membrane normal. Eyes: Extraocular Movements: Extraocular movements intact. Pupils: Pupils are equal, round, and reactive to light. Cardiovascular: Rate and Rhythm: Normal rate and regular rhythm. Heart sounds: No murmur heard. No friction rub. No gallop. Pulmonary: Effort: Pulmonary effort is normal. Breath sounds: Normal breath sounds. No wheezing, rhonchi or rales. Abdominal: General: Bowel sounds are normal. There is no distension. Palpations: Abdomen is soft. Tenderness: There is no abdominal tenderness. There is no guarding or rebound. Musculoskeletal: Cervical back: Neck supple. Right lower leg: No edema. Left lower leg: No edema. Neurological: Mental Status: She is alert. Assessment/Plan Problem List Items Addressed This Visit Chronic elbow pain, right - Primary Prior surgery to move ulnar nerve and developed large scar and pain. Treat with prednisone for inflammation. Refer to ortho for evaluation. Relevant Medications predniSONE (Deltasone) 50 MG tablet Other Relevant Orders Ambulatory referral to Orthopaedic Surgery Class 3 severe obesity due to excess calories without serious comorbidity with body mass index (BMI) of 40.0 to 44.9 in adult ([facility]) Weight loss indicated. documented in this encounter [facility] 01-27-2024 History of Presen t illness Narrative Images from the original note were not included. CHIEF COMPLAINT REASON FOR VISIT : fatigue, history of COVID, brain fog, memory loss HPI: Gretel Card is a 38 y.o. female who presents for [facility]. We could not get any sound on televisit. She is at home. She consents to visit. She forgets things a lot. She has debilitating fatigue. She has difficulty concentrating. Before last year when she had COVID she was going through [employer] school and passed however could not pass her testing due to her symptoms. She has tried Strattera, Qelbree and now focalin. She has completed brain mapping. CURRENT MEDICATIONS: ALLERGIES/DISCONTINUE MEDICATIONS Current Outpatient Medications Medication Instructions dexmethylphenidate XR (FOCALIN XR) 20 mg, Oral, Daily, Do not crush, chew, or split. oxyCODONE-acetaminophen (Percocet) 5-325 MG tablet 1 tablet, Oral, 4 times daily tiZANidine (ZANAFLEX) 4 mg, Oral No Known Allergies There are no discontinued medications. PAST MEDICAL HISTORY: SURGICAL/SOCIAL/FAMILY HISTORY DEPRESSION SCREEN: Past Medical History: Diagnosis Date ADD (attention deficit disorder) March 2021 CTS (carpal tunnel syndrome) Developmental delay March 2021 Memory loss March 2021 Past Surgical History: Procedure Laterality Date CARPAL TUNNEL RELEASE 2016 SECTION, LOW TRANSVERSE x2 CHOLECYSTECTOMY 1998 ENDOMETRIAL ABLATION 02/2022 TUBAL LIGATION Social History Tobacco Use Smoking status: Former Current packs/day: 0.25 Average packs/day: 0.3 packs/day for 10.0 years (2.5 ttl pk-yrs) Types: Cigarettes Smokeless tobacco: Never Substance Use Topics Alcohol use: Never Drug use: Never Family History Problem Relation Name Age of Onset Neuropathy Mother Parent Restless legs syndrome Mother Parent Recurrent abdominal pain Father Depression: Not on file REVIEW OF SYMPTOMS: Review of Systems Constitutional: Positive for fatigue. Negative for chills and fever. HENT: Negative for tinnitus. Eyes: Negative for photophobia. Respiratory: Negative for shortness of breath. Cardiovascular: Negative for chest pain. Gastrointestinal: Negative for nausea and vomiting. Genitourinary: Negative for frequency. Musculoskeletal: Negative for back pain, gait problem and neck pain. Neurological: Negative for dizziness, tremors, weakness, light-headedness, numbness and headaches. Psychiatric/Behavioral: Positive for decreased concentration. OBJECTIVE: 01/27/2024 4:14 PM 11/06/2023 1:15 PM 09/18/2023 3:04 PM Vitals BMI 38.97 kg/m2 41.1 kg/m2 40.92 kg/m2 BSA (m2) 2.11 m2 2.16 m2 2.16 m2 Height (in) 5' 3 5' 3 5' 3 Weight (lb) 220 232 231 Visit Report Report Report EXAM: Neurological Exam Mental Status Awake, alert and oriented to person, place and time. Oriented to person, place and time. Speech is normal. Language is fluent with no aphasia. Unable to perform serial calculations. Difficulty spelling words backwards. PROCEDURE: ASSESSMENT AND PLAN: Diagnoses and all orders for this visit: ADD (attention deficit disorder) without hyperactivity - dexmethylphenidate XR (Focalin XR) 30 MG 24 hr capsule; Take 1 capsule (30 mg) by mouth Daily Do not crush, chew, or split. Traumatic brain injury, with unknown loss of consciousness status, subsequent encounter - dexmethylphenidate XR (Focalin XR) 30 MG 24 hr capsule; Take 1 capsule (30 mg) by mouth Daily Do not crush, chew, or split. Post-COVID chronic concentration deficit - dexmethylphenidate XR (Focalin XR) 30 MG 24 hr capsule; Take 1 capsule (30 mg) by mouth Daily Do not crush, chew, or split. 38 year old female with debilitating brain fog, memory loss, concentration deficit and fatigue. History of COVID causing her Long Haulers. Her symptoms leave her unable to carry out work related tasks. She was going through [employer] and was unable to pass certification testing due to memory and fatigue/concentration issues. I will dose increase focalin XR 30 mg daily. Her symptoms have lasted way beyond the 12 month celio. She likely will not be able to maintain any gainful employment. She also has had history of concussion. I will order Creyos memory testing to further evaluate symptoms. Brain map results with evidence of Delayed N1 latency with reduced neuronal capacity associated with visual processing. Signs of tinnitus, TBI and PTSD. We will continue to follow and treat symptoms. This was discussed with patient all questions answered. Total time 30 minutes spent reviewing records, performing medically appropriate exam, counseling , education, ordering medication, tests, and/or procedures, documenting health information into the health record, communicating results to the patient, and coordinating care. documented in this encounter [facility] 01-14-2024 Telephone encount er Note Pt has been rescheduled to televisit with for next follow-up but she is out of focalin rx and needs refill - also questioned whether you were going to up the dosage or not per past discussion. [facility] 01-14-2024 Miscellaneous Notes Formattin g of this note might be different from the original. Pt has been rescheduled to televisit with for next follow-up but she is out of focalin rx and needs refill - also questioned whether you were going to up the dosage or not per past discussion. documented in this encounter [facility] 12-04-2023 Telephone encount er Note Patient left message wanting to know if a different prescription could be prescribed. States that the Focalin XR is helping better then the other but still is tired and not a lot of energy. Please advise. [phone] [facility] 12-04-2023 Miscellaneous Notes Formattin g of this note might be different from the original. Patient left message wanting to know if a different prescription could be prescribed. States that the Focalin XR is helping better then the other but still is tired and not a lot of energy. Please advise. [phone] documented in this encounter [facility] 04-10-2021 Evaluation note Encounter Date Diagnosis Assessment Notes Mar, Injury of right hand, initial encounter (ICD-10 - S69.91XA) FINAL READ shows no acute bony abnormality. Results were reviewed and discussed with pt in office at time of visit and they verbally understood these findings. Pt was given final report from radiologist. Mar, Sprain of right hand, initial encounter (ICD-10 - S63.91XA) Pt to take otc nsaid prn as directed for pain and swelling. Ice first 48 hrs as directed, then moist heat thereafter. Daquan wrap applied in office today. Pt to wear as directed. Educated them of s/sx of vascular compromise that would indicate the wrap is too tight. N/v signs intact in office today. RICE therapy. No heavy lifting or strenuous exercise. Stretching exercises as discussed. Pt to f/u as needed for any persistent or worsening symptoms. Pt understood and agreed to treatment plan. [facility] Other 12-03-2021 NoteOPERATIVE NOTE OPERATION DATE: 03-02-21 ANESTHETIC:General. COURSEWARE DEVELOPER:None. PREOPERATIVE DIAGNOSIS:Menorrhagia. POSTOPERATIVE DIAGNOSIS:Menorrhagia. PROCEDURE NAME:Lilliana endometrial ablation with hysteroscopy. SPECIMEN:None. FINDINGS: Normal appearing cavity, both ostia seen. No gross evidence of polyps, fibroids, or malignancy. BLOOD LOSS:5 mL. PROCEDURE: The patient was taken back to the OR where she was prepped and draped in the normal sterile fashion after being placed in the dorsal lithotomy position, after being placed under general anesthesia without difficulty. The anterior lip was grasped with a single tooth tenaculum. The patient was then gently sounds. The patient was gently sounded using Hegar dilators and the hysteroscope was passed through the cervix into the uterus where both ostia were seen. No gross evidence of polyps, fibroids or malignancy. A weighted speculum was placed in the patient's vagina, the anterior tip of the cervix was identified and grasped with a single tooth tenaculum. The patient was gently sounded to roughly 10 cm. The cervical length was noted to be 5 cm. The Lilliana ablation apparatus was set to approximately 5 in length. This was placed in through the cervix and into the uterus. After the seal was tested, at that time the total ablation of 120 seconds was performed with the Lilliana without difficulty. All instruments were removed from the vagina. [facility] Signed and Approved by: DR RICO DAMON . 03/06/2021 07:56:00[facility] Diagnosis ADD (attention deficit disorder) without hyperactivity- Primary Attention deficit disorder without mention of hyperactivity Traumatic brain injury, with unknown loss of consciousness status, subsequent encounter Post-COVID chronic concentration deficit Anxiety Anxiety state, unspecified PTSD (post-traumatic stress disorder) ([facility]) Posttraumatic stress disorder documented in this encounter [facility]* Diagnosis Chronic elbow pain, right- Primary Class 3 severe obesity due to excess calories without serious comorbidity with body mass index (BMI) of 40.0 to 44.9 in adult ([facility]) documented in this encounter [facility]* Diagnosis Chronic elbow pain, right- Primary Class 3 severe obesity due to excess calories without serious comorbidity with body mass index (BMI) of 40.0 to 44.9 in adult ([facility]) ADD (attention deficit disorder) without hyperactivity- Primary Attention deficit disorder without mention of hyperactivity documented in this encounter [facility]* Diagnosis ADD (attention deficit disorder) without hyperactivity Attention deficit disorder without mention of hyperactivity documented in this encounter [facility]* Diagnosis Chronic elbow pain, right- Primary Class 3 severe obesity due to excess calories without serious comorbidity with body mass index (BMI) of 40.0 to 44.9 in adult (CMS/HCC) ADD (attention deficit disorder) without hyperactivity- Primary Attention deficit disorder without mention of hyperactivity documented [facility] encounter [facility]* Diagnosis Chronic elbow pain, right- Primary Class 3 severe obesity due to excess calories without serious comorbidity with body mass index (BMI) of 40.0 to 44.9 in adult (CMS/HCC) ADD (attention deficit disorder) without hyperactivity- Primary Attention deficit disorder without mention of hyperactivity RLS (restless legs syndrome) Restless legs syndrome (RLS) [facility] Narrative - Reported* Type Description Date Surgical History carpal tunnel Surgical History cholestectomy Surgical History X2 [facility] Other Summary Purpose Family History No Family History Records FoundNo Family History Records FoundNo Family History Records Found Advance Directives No Advanced Directives Records FoundNo Advanced Directives Records FoundNo Advanced Directives Records Found Additional Source Comments INFORMATION SOURCE (unrecogn ized section and content) DATE CREATED AUTHOR 03/27/2021 [facility] DATE CREATED AUTHOR AUTHOR'S ORGANIZ ATION 04/23/2021 [facility] DATE CREATED AUTHOR AUTHOR'S ORGANIZ ATION 04/18/2024 [facility] EPIC REASON FOR VISIT (unrecogniz ed section and content) Reason Comments Elbow Injury Pain in right elbow Care Teams (unrecognized sec tion and content) 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 Relationship Specialty Start Date End Date Damon Merritt MD [address] [place] [phone] PCP - General Family Medicine 06/17/23 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 Relationship Specialty Start Date End Date Damon Merritt MD [address] [place] [phone] PCP - General Family Medicine 06/17/23 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 Relationship Specialty Start Date End Date Damon Merritt MD [address] [place] [address] PCP - General Family Medicine 06/17/23 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 Relationship Specialty Start Date End Date Damon Merritt MD [address] [place] [address] PCP - [facility] 06/17/23 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 Relationship Specialty Start Date End Date Damon Merritt MD [address] [place] [address] PCP - [facility] 06/17/23 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 Relationship Specialty Start Date End Date Damon Merritt MD [address] [place] [address] PCP - [facility] 06/17/23 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 Relationship Specialty Start Date End Date Damon Merritt MD [address] [place] [address] PCP - [facility] 06/17/23 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 This clinical summary was aggregated from multiple sources. Caution should be exercised in using it in the provision of clinical care. This summary normalizes information from multiple sources, and as a consequence, information in this document may materially change the coding, format and clinical context of patient data. In addition, data may be omitted in some cases. CLINICAL DECISIONS SHOULD BE BASED ON THE PRIMARY CLINICAL RECORDS. [facility]. provides no warranty or guarantee of the accuracy or completeness of information in this document.
[2024-05-07 11:08] LABS: Age Gdln ACOG Testing Note (.); HPV Aptima Negative (Negative); IGP, Aptima HPV, rfx 16/18,45 Note (.)
== END 2024-05-03 21:55 | disposition home or self-care (01) ==
LOC: LAB 21:54
PROVIDERS: Visit Provider Obstetrics & Gynecology
DX: Z01.419 Encounter for gynecological examination (general) (routine) without abnormal findings (principal)
CPT/HCPCS: 87624; 88175